=== PATIENT | female | born 1980 | race Caucasian/White ===

== ENCOUNTER 2017-09-05 08:45 | Outpatient (CLI) | payer MEDICAID ==
[~2017-09-05] VITALS: Ht 157.5 cm; Wt 73.1 kg
[2017-09-05] MEDS ORDERED: FOLI-49 PO (09:10)
[2017-09-05] MEDS ORDERED: PREN1TAB13 PO (09:10)
[2017-09-05] MEDS ORDERED: FER325 PO (09:11)
[2017-09-05] MEDS ORDERED: ASPI81TA50 PO (09:11)
[2017-09-05 09:12] VITALS: BP 91/54; PULSE 73; RESP 20; Ht 157.5 cm; Wt 73.1 kg
[2017-09-05 09:45] LABS: BASOPHILS % 0.3 % (0.0-2.0); EOSINOPHILS # 0.1 10^3/ul (0.0-0.5); EOSINOPHILS % 1.1 % (0.0-7.0); HEMATOCRIT 30.3 % (37.0-47.0); HEMOGLOBIN 10.7 g/dl (12.0-16.0); LYMPHOCYTES # 1.2 10^3/ul (0.8-2.9); LYMPHOCYTES % 19.6 % (15.0-51.0); MEAN CORPUSCULAR HEMOGLOBIN 33.2 pg (29.0-33.0); MEAN CORPUSCULAR HGB CONC 35.3 g/dl (32.0-37.0); MEAN CORPUSCULAR VOLUME 94.1 fl (82.0-101.0); MEAN PLATELET VOLUME 9.8 fl (7.4-10.4); MONOCYTE # 0.4 10^3/ul (0.3-0.9); MONOCYTES % 6.1 % (0.0-11.0); NEUTROPHIL # 4.5 10^3/ul (1.6-7.5); NEUTROPHILS % 71.8 % (39.0-77.0); PLATELET COUNT 194 10^3/UL (140-415); RED BLOOD COUNT 3.22 10^6/ul (4.20-5.40); WHITE BLOOD COUNT 6.3 10^3/ul (4.8-10.8)
--- NOTE | 2017-09-05 10:17 | RADRPT ---
PROCEDURE: US OB. Ultrasound cervix CLINICAL INDICATION: pain , contractions TECHNIQUE: Multiple sonographic images of the pelvis were obtained. The images were reviewed on a PACS workstation. In addition, transvaginal images of the cervix were obtained COMPARISON: No prior studies are available for comparison. FINDINGS: There is a twin viable intrauterine gestation. There is a single posterior placenta. The cervix is closed and measures 4.5 cm in length. Twin A Cardiac activity is present with 150 beats per minute. There is a vertex presentation. Twin B Cardiac activity is present with 144 beats per minute. There is a vertex presentation. RPTAT: AA . IMPRESSION: Cervix is closed and measures 4.5 cm in length. . .Alejo Bailey MD, MD Date Time Electronically viewed and signed by .Alejo Bailey MD, on 09/05/2017 10:16 .S/
[2017-09-05 11:15] LABS: UR BILIRUBIN (Dip) NEGATIVE (NEGATIVE); UR BLOOD (Dip) NEGATIVE (NEGATIVE); UR CLARITY CLEAR (CLEAR); UR COLOR YELLOW (YELLOW); UR GLUCOSE (Dip) NEGATIVE (NEGATIVE); UR KETONES (Dip) NEGATIVE (NEGATIVE); UR NITRITE (Dip) NEGATIVE (NEGATIVE); UR TOTAL PROTEIN (Dip) NEGATIVE (NEGATIVE); UR UROBILINOGEN (Dip) 0.2 E.U./dL mg/dL (NEGATIVE)
[2017-09-05 11:16] LABS: ADD UMIC YES; UR LEUKOCYTE ESTERASE (Dip) TRACE Leu/ul (NEGATIVE); UR SQUAMOUS EPITHELIAL CELL FEW /HPF (FEW); URINE RBCS 0-2 /HPF (0)
[2017-09-05 11:22] LABS: UR AMORPHOUS CRYSTAL MODERATE /HPF (NONE SEEN); UR ASCORBIC ACID NEGATIVE (NEGATIVE); UR BACTERIA FEW /HPF (NONE SEEN); UR MUCUS FEW /HPF (NONE SEEN); UR RBC 1 /HPF (0-5); UR SPECIFIC GRAVITY (Dip) 1.017 (1.003-1.030)
--- NOTE | 2017-09-05 12:09 | CONS ---
Date/Time of Note Date/Time of Note DATE: 09/05/17 TIME: 11:56 Consultation Date/Type/Reason Admit Date/Time September 05, 2017 OB triage consult This patient is 37 years old 4 para 2 1 with estimated date of confinement of November 07, 2017 which makes her 31 weeks now. She came to the triage clinic complaining of uterine contractions and slight dizziness. She is with twins Her lab works so for over fairly normal blood pressure is O+ hepatitis B surface antigen negative HIV RPR were nonreactive immune to rubella her main concern is premature labor and delivery with twins on general examination she is a well-developed well-nourished lady at midterm with twins. Her general vital signs appears to be within normal limits with blood pressure of 91/54, pulse rate of 73, respiration of 20 and temperature of 93.3,. Reason for Consultation Laboratory Tests Test 09/05/17 09:00 09/05/17 09:31 Urine Color YELLOW Urine Clarity CLEAR Urine pH 7.0 Urine Specific [place] 1.017 Urine Ketones NEGATIVEmg/dL Urine Nitrite NEGATIVEmg/dL Urine Bilirubin NEGATIVEmg/dL Urine Urobilinogen 0.2 E.U./dLmg/dL Urine Leukocyte Esterase TRACELeu/ul Urine Microscopic RBC 1/HPF Urine Microscopic WBC 6/HPF Urine Squamous Epithelial Cells FEW/HPF Urine Amorphous Crystals MODERATE/HPF Urine Bacteria FEW/HPF Urine Mucus FEW/HPF Urine Hemoglobin NEGATIVEmg/dL Urine Glucose NEGATIVEmg/dL Urine Total Protein NEGATIVEmg/dl White Blood Count 6.310^3/ul Red Blood Count 3.2210^6/ul Hemoglobin 10.7g/dl Hematocrit 30.3% Mean Corpuscular Volume 94.1fl Mean Corpuscular Hemoglobin 33.2pg Mean Corpuscular Hemoglobin Concent 35.3g/dl Red Cell Distribution Width 13.0% Platelet Count 69986^3/UL Mean Platelet Volume 9.8fl Neutrophils % 71.8% Lymphocytes % 19.6% Monocytes % 6.1% Eosinophils % 1.1% Basophils % 0.3% Nucleated Red Blood Cells % 0.0/100WBC Neutrophils # 4.510^3/ul Lymphocytes # 1.210^3/ul Monocytes # 0.410^3/ul Eosinophils # 0.110^3/ul Basophils # 0.010^3/ul Nucleated Red Blood Cells # 0.010^3/ul Constitutional: No chills, No diaphoresis, No disoriented, No febrile, No improved, No no complaints, No other, No poor po, No requiring IVF, No requiring O2 Eyes: No discharge, No no complaints, No other, No pain, No redness, No visual change ENT: No bleeding, No congestion, No discharge, No dysphagia, No no complaints, No other, No pain, No sore throat Respiratory: No cough, No no complaints, No other, No pain, No pleuritic pain, No shortness of breath, No sputum, No wheezing Cardiovascular: No chest pain, No edema, No lightheadedness, No no complaints, No orthopenea, No other, No palpitations, No paroxysmal nocturnal dyspnea Gastrointestinal: No blood, No constipation, No decreased appetite, No diarrhea , No flatus, No nausea, No no complaints, No other, No pain, No passing stool, No vomiting Genitourinary: other (Due to lack of contractions and pelvic examination was not performed), No bleeding, No discharge, No dysuria, No flank pain, No hematuria, No no complaints Musculoskeletal: No back pain, No bone/joint pain, No neck pain, No no complaints, No other, No restricted range of motion, No swelling Skin: No bruising, No erythema, No laceration, No no complaints, No other, No pruritis, No rash, No skin lesions Neurologic: other (Knee-jerk reflex 1+), No confusion, No dizziness, No focal-weakness, No headache, No no complaints , No seizure, No syncope Endocrine: No dry skin, No no complaints, No other, No polydypsia, No polyuria , No temp intolerance Lymphatic: No adenopathy, No lymphadema, No no complaints, No other, No tender nodes Additional Comments We performed a few test as well as the ultrasound study her urinalysis was basically within normal limits CBC; her hemoglobin was 10.7 hematocrit was 30.3 and the rest of the results including WBC RBC and platelet count were all within normal limit. On ultrasound study report was a twin viable intrauterine gestation there was one single posterior placenta the cervix was 4.5 cm in length twin a had A cardiac activity 150 bpm, in vertex presentation' twin B with cardiac activity 144 bpm and was also in vertex presentation. With these normal finding patient was reassured and she was discharged home she is advised to rest at home drink plenty of fluid if any evidence of labor , vaginal bleeding or rupture of the membrane immediately return to triage area other than that she will be seen by her attending physician and will be scheduled for a primary section. End of dictation Social History Smoking Status: Never smoker Exam/Review of Systems Vital Signs Vitals Vital Signs Date Time Temp Pulse Resp B/P Pulse Ox O2 Delivery O2 Flow Rate FiO2 09/05/17 09:12 97.3 73 20 91/54 Room Air Results Result Diagram: 09/05/17930 Results 24 hrs Laboratory Tests Test 09/05/17 09:00 09/05/17 09:31 Urine Color YELLOW Urine Clarity CLEAR Urine pH 7.0 Urine Specific [place] 1.017 Urine Ketones NEGATIVE Urine Nitrite NEGATIVE Urine Bilirubin NEGATIVE Urine Urobilinogen 0.2 E.U./dL Urine Leukocyte Esterase TRACE Urine Microscopic RBC 1 Urine Microscopic WBC 6 H Urine Squamous Epithelial Cells FEW Urine Amorphous Crystals MODERATE Urine Bacteria FEW A Urine Mucus FEW A Urine Hemoglobin NEGATIVE Urine Glucose NEGATIVE Urine Total Protein NEGATIVE White Blood Count 6.3 Red Blood Count 3.22 L Hemoglobin 10.7 L Hematocrit 30.3 L Mean Corpuscular Volume 94.1 Mean Corpuscular Hemoglobin 33.2 H Mean Corpuscular Hemoglobin Concent 35.3 Red Cell Distribution Width 13.0 Platelet Count 194 Mean Platelet Volume 9.8 Neutrophils % 71.8 Lymphocytes % 19.6 Monocytes % 6.1 Eosinophils % 1.1 Basophils % 0.3 Nucleated Red Blood Cells % 0.0 Neutrophils # 4.5 Lymphocytes # 1.2 Monocytes # 0.4 Eosinophils # 0.1 Basophils # 0.0 Nucleated Red Blood Cells # 0.0 WAQAR BACA MD Sep 05, 2017 12:09
== END 2017-09-05 11:27 | disposition home or self-care (01) ==
LOC: L-D 08:45 → OBT 08:45
PROVIDERS: ATTEND Obstetrics & Gynecology
DX: O62.9 Abnormality of forces of labor, unspecified (principal); Z3A.38 38 weeks gestation of pregnancy
CPT/HCPCS: 76817; 81001; 85025; Z7500; G0463

== ENCOUNTER 2017-10-02 17:10 | Inpatient (IN) | END 2017-10-05 13:45 | disposition home or self-care (01) | DRG 765 ==